=== PATIENT | male | born 2000 | race Caucasian/White ===

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

== ENCOUNTER 2018-07-12 21:04 | Emergency (ER) | payer MEDICAID ==
--- NOTE | 2018-07-12 21:43 | ED Physician Chart ---
ED Chief Complaint/HPI - Patient Information Date Seen:: 07/12/18 Time Seen:: 21:41 Chief Complaint:: Cough History of Present Illness:: 18 yo male had cough productive of yellow sputum, chest pain, running nose for 4 days. Patient felt fatigue, chills, but no fever. Allergies:: Allergies Allergy/AdvReac Type Severity Reaction Status Date / Time ceftriaxone [From Rocephin] Allergy Verified 03/25/17 15:07 Vitals:: Vital Signs - 8 hr 07/12/18 21:10 Temp 99.5 F HR 98 RR 18 BP 135/76 O2 Sat % 97 ED Review of Systems - Review of Systems General/Constitutional: Chills, Weakness Skin: No rash Head: Headache Eyes: No pain ENT: No nasal drainage Neck: No neck pain Cardio Vascular: Chest pain Pulmonary: SOB, Cough, Sputum GI: No nausea, No vomiting Musculoskeletal: Muscle pain Neurological: No focal symptoms ED Past Medical History - Past Medical History Past Medical History: No significant medical hx Social History: Smoker, No Alcohol, Illicit Drug Use (marijuana) Surgical History: None Family Medical History - Family Member Mother History Unknown: Yes Ethnicity: Unknown Living Status: Still Living Hx Family Cancer: No Hx Family Coronary Artery Disease: No Hx Family Congestive Heart Failure: No Hx Family Hypertension: Yes Grandmother History Unknown: Yes Ethnicity: Non- Living Status: Unknown Hx Family Cancer: Yes (Breast cancer) ED Physical Exam - Physical Examination General/Constitutional: Awake, Alert Head: Atraumatic Eyes: PERRL, EOMI Skin: No skin lesions ENMT: Nasal exam nl Neck: No nuchal rigidity Other Respiratory comments:: mild inspirational wheeze Cardio Vascular: RRR, No murmur, gallop, rubs, NL S1 S2 GI: No tenderness/rebounding/guarding Extremities: normal strength in all extremities Neuro/Psych: No focal deficits ED Labs/Radiology/EKG Results - Lab Results Results: Laboratory Last Values WBC 13.7 Th/cmm (4.8-10.8) H 07/12/18 22:00 RBC 5.11 Mil/cmm (4.30-5.70) 07/12/18 22:00 Hgb 15.1 gm/dL (12-16) 07/12/18 22:00 Hct 44.9 % (41.0-60) 07/12/18 22:00 MCV 87.9 fl (80-99) 07/12/18 22:00 MCH 29.5 pg (26.0-30.0) 07/12/18 22:00 MCHC Differential 33.5 pg (28.0-36.0) 07/12/18 22:00 RDW 13.0 % (11.5-20.0) 07/12/18 22:00 Plt Count 265 Th/cmm (150-400) 07/12/18 22:00 MPV 7.6 fl 07/12/18 22:00 Neutrophils % 72.3 % (40.0-80.0) 07/12/18 22:00 Lymphocytes % 10.2 % (20.0-50.0) L 07/12/18 22:00 Monocytes % 10.0 % (2.0-10.0) 07/12/18 22:00 Eosinophils % 7.2 % (0.0-5.0) H 07/12/18 22:00 Basophils % 0.3 % (0.0-2.0) 07/12/18 22:00 Sodium 138 mEq/L (136-145) 07/12/18 22:00 Potassium 4.2 mEq/L (3.5-5.1) 07/12/18 22:00 Chloride 105 mEq/L (98-107) 07/12/18 22:00 Carbon Dioxide 25.4 mEq/L (21.0-31.0) 07/12/18 22:00 Anion Gap 11.8 (7.0-16.0) 07/12/18 22:00 BUN 9 mg/dL (7-25) 07/12/18 22:00 Creatinine 0.9 mg/dL (0.7-1.3) 07/12/18 22:00 Est GFR ( Amer) > 60.0 ml/min (>90) 07/12/18 22:00 Est GFR (Non-Af Amer) > 60.0 ml/min 07/12/18 22:00 BUN/Creatinine Ratio 10.0 07/12/18 22:00 Glucose 86 mg/dL (70-105) 07/12/18 22:00 Calcium 9.7 mg/dL (8.6-10.3) 07/12/18 22:00 Total Bilirubin 0.6 mg/dL (0.3-1.0) 07/12/18 22:00 AST 13 U/L (13-39) 07/12/18 22:00 ALT 11 U/L (7-52) 07/12/18 22:00 Alkaline Phosphatase 63 U/L (34-104) 07/12/18 22:00 Total Protein 7.8 gm/dL (6.0-8.3) 07/12/18 22:00 Albumin 4.3 gm/dL (4.2-5.5) 07/12/18 22:00 Globulin 3.5 gm/dL 07/12/18 22:00 Albumin/Globulin Ratio 1.2 (1.0-1.8) 07/12/18 22:00 - Radiology Results Results: CXR: no focal consolidation ED Assessment - Assessment General Assessment: Bronchitis Leukocytosis Assessment/Comments:: CBC, CMP CXR DuoNeb Robitussin Azithromycin 500mg IV NS 1L IV bolus Tylenol D/c home F/u PCP or return to ER if symptoms worsen ED Septic Shock - . Is Septic Shock (SBP<90, OR Lactate>4 mmol\L) present?: No - <6hrs of presentation: Vital Signs: Vital Signs - 8 hr 07/12/18 21:10 Temp 99.5 F HR 98 RR 18 BP 135/76 O2 Sat % 97 ED Reassessment (Disposition) - Reassessment Reassessment Condition:: Improved - Patient Disposition Discharge/Transfer:: Home
[2018-07-12] MEDS ORDERED: Guaifenesin DM 10 ML UDC ONE (21:53)
[2018-07-12] MEDS ORDERED: Albuterol/Ipratropium Neb 3 ML AERS HHN ONE (21:54)
[2018-07-12] MEDS: Guaifenesin DM 10 ML UDC PO ONE (21:55)
[2018-07-12] MEDS: Albuterol/Ipratropium Neb 3 ML AERS HHN ONE (21:59)
[2018-07-12 22:03] LABS: % BASOPHILS 0.3 % (0.0-2.0); % EOSINOPHILS 7.2 % (0.0-5.0); % LYMPHOCYTES 10.2 % (20.0-50.0); % NEUTROPHILS 72.3 % (40.0-80.0); HEMATOCRIT 44.9 % (41.0-60); HEMOGLOBIN 15.1 gm/dL (12-16); LYMPHOCYTE ABSOLUTE 1.4 Th/cmm (1.5-3.0); MEAN CELL VOLUME 87.9 fl (80-99); MEAN CORPUSCULAR HEMOGLOBIN 29.5 pg (26.0-30.0); MEAN CORPUSCULAR HGB CONC 33.5 pg (28.0-36.0); MEAN PLATELET VOLUME 7.6 fl; MONOCYTE ABSOLUTE 1.4 Th/cmm (0.3-1.0); NEUTROPHILE ABSOLUTE 9.9 Th/cmm (1.8-8.0); PLATELET COUNT 265 Th/cmm (150-400); RED BLOOD COUNT 5.11 Mil/cmm (4.30-5.70); WHITE BLOOD COUNT 13.7 Th/cmm (4.8-10.8)
[2018-07-12 22:21] LABS: ALB/GLOB RATIO 1.2 (1.0-1.8); ALBUMIN 4.3 gm/dL (4.2-5.5); ALKALINE PHOSPHATASE 63 U/L (34-104); ANION GAP 11.8 (7.0-16.0); BILIRUBIN,TOTAL 0.6 mg/dL (0.3-1.0); BUN - UREA NITROGEN 9 mg/dL (7-25); CALCIUM SERUM 9.7 mg/dL (8.6-10.3); CARBON DIOXIDE 25.4 mEq/L (21.0-31.0); CHLORIDE 105 mEq/L (98-107); CREATININE - SERUM 0.9 mg/dL (0.7-1.3); GFR AFRICAN-AMERICAN > 60.0 ml/min (>90); GFR NON AFRICAN-AMERICAN > 60.0 ml/min; GLUCOSE 86 mg/dL (70-105); POTASSIUM SERUM 4.2 mEq/L (3.5-5.1); SGOT 13 U/L (13-39); SGPT/ALT 11 U/L (7-52); SODIUM SERUM 138 mEq/L (136-145); TOTAL PROTEIN,SERUM 7.8 gm/dL (6.0-8.3)
[2018-07-12] MEDS ORDERED: cefTRIAXone 1 GM in Sodium Chloride 0.9% 50 ML IV ONE (22:47)
[2018-07-12] MEDS: Azithromycin 500 MG in Sodium Chloride 0.9% 250 ML IV ONE (22:55)
[2018-07-12] MEDS: Sodium Chloride 0.9% 1,000 ML IV ONE (23:04)
== END 2018-07-13 00:51 | disposition home or self-care (01) ==
LOC: ER 21:04
DX: J40 Bronchitis, not specified as acute or chronic (principal); D72.829 Elevated white blood cell count, unspecified; F17.200 Nicotine dependence, unspecified, uncomplicated; Z88.1 Allergy status to other antibiotic agents
CPT/HCPCS: 36415-UA; 71045-TC; 80053-TC; 85025-TC; 94640; J0456; J7030; Z7502; Z7610